=== PATIENT | male | born 1945 | race Caucasian/White ===

== ENCOUNTER 2022-05-26 15:23 | Outpatient (CLI) | payer MEDICARE | END 2022-05-26 15:24 | disposition home or self-care (01) | LOC: RAD 15:23 | PROVIDERS: ATTEND Internal Medicine Critical Care Medicine | DX: R06.00 Dyspnea, unspecified (principal); J44.9 Chronic obstructive pulmonary disease, unspecified | CPT/HCPCS: 71046 ==